=== PATIENT | female | born 1940 | race Caucasian/White ===

== ENCOUNTER → 2016-12-23 | Outpatient (CLI) | payer OTHER | LOC: BMCIMAGING 12:09 | DX: Z12.31 Encounter for screening mammogram for malignant neoplasm of breast (principal) | CPT/HCPCS: G0202 ==

== ENCOUNTER → 2018-01-14 | Outpatient (CLI) | payer OTHER | LOC: BMCIMAGING 12:43 | PROVIDERS: ATTEND Internal Medicine | DX: Z12.31 Encounter for screening mammogram for malignant neoplasm of breast (principal) ==

== ENCOUNTER → 2018-05-19 | Outpatient (CLI) | payer OTHER | LOC: BMCIMAGING 13:02 | PROVIDERS: ATTEND Internal Medicine | DX: M51.37 Other intervertebral disc degeneration, lumbosacral region (principal); M53.87 Other specified dorsopathies, lumbosacral region; M43.16 Spondylolisthesis, lumbar region ==

== ENCOUNTER 2018-11-30 11:16 | Emergency (ER) | payer OTHER ==
--- NOTE | 2018-11-30 11:26 | EDPHY ---
H & P Stated Complaint: irregular HR Time Seen by Provider: 11/30/18 11:25 - Personal History Tetanus Vaccine Date: Under 10 years. - Medical/Surgical History Hx Asthma: Yes Hx Chronic Respiratory Disease: No Hx Diabetes: No Hx Cardiac Disease: Yes Hx Renal Disease: No Hx Cirrhosis: No Hx Alcoholism: No Hx HIV/AIDS: No Hx Splenectomy or Spleen Trauma: No Other PMH: a fib, hysterectomy for uterine cancer surgery 1997, right arthroscopic knee surgery, hypertension, asthma, non cancer nodules in colon, pneumonia, stroke 2007.pulmonary htn,chf - Social History Smoking Status: Never smoked Constitutional: Initial Vital Signs Temperature (C) 36.6 C 11/30/18 11:22 Heart Rate 90 11/30/18 11:22 Respiratory Rate 16 11/30/18 11:22 Blood Pressure 153/87 H 11/30/18 11:22 O2 Sat (%) 95 11/30/18 11:22 O2 Delivery Mode Room Air Allergies/Adverse Reactions: [place] And Derivatives Allergy (Verified 11/30/18 11:21) erythromycin base [Erythromycin Base] Allergy (Verified 11/30/18 11:21) Penicillins Allergy (Verified 11/30/18 11:21) Sulfa (Sulfonamide Antibiotics) Allergy (Verified 11/30/18 11:21) Home Medications: Medication Instructions Recorded Allopurinol [Allopurinol 300 MG 300 mg PO DAILY 12/30/14 (RX)] Aspirin [Aspirin 81mg (*)] 81 mg PO HS 12/30/14 Atorvastatin Calcium [Lipitor 10 10 mg PO HS 12/30/14 mg (*)] Metoprolol Succinate Xr [Toprol Xl 50 mg PO DAILY #30 tab 12/30/14 50 mg (*)] Warfarin Sodium [Coumadin 3MG (*)] 3 mg PO DAILY16 #30 tab 12/30/14 Furosemide [Lasix 20 MG (*)] 20 mg PO MWF #30 tab 01/06/15 Spironolactone [Aldactone 25 MG 12.5 mg PO MWF #30 tab 01/06/15 (*)] Lutein 11/30/18 Vitamin D3 11/30/18 Medical Decision Making ED Course/Re-evaluation: CHIEF COMPLAINT: Irregular heart rate HISTORY OF PRESENT ILLNESS: The patient is an anticoagulated (Coumadin) 78 y/o female complaining of a "fluttering" in her heart, onset last night. The patient has been on Coumadin for 10 years due to a-fib. For the past month she has had intermittent episodes of a-fib. She reports that she has also felt more short of breath while exerting herself. Last night she noticed a "fluttering" in her heart and it felt stronger than normal. She is followed by Dr. Talbot, catalytic converter operator at [facility]. No fever, headache, body aches, lightheadedness, chest pain, shortness of breath, cough, abdominal pain, urinary or bowel complaints, numbness, paresthesias. REVIEW OF SYSTEMS: A comprehensive 10 system review of systems is otherwise negative aside from elements mentioned in the history of present illness and medical decision making. PHYSICAL EXAM: HR, BP, O2 Sat, RR. Temp noted General Appearance: Alert, well hydrated, appropriate, and non-toxic appearing. Head: Atraumatic without scalp tenderness or obvious injury Eyes: Pupils equal, round, reactive to light and accommodation, EOMI, no trauma , no injection. Ears: Clear bilaterally, no perforation, normal landmarks Nose: Atraumatic, no rhinorrhea, clear. Throat: There is no erythema or exudates, no lesions, normal tonsils, mucus membranes moist. Neck: Supple, 2+ carotid upstroke, nontender, no lymphadenopathy. Respiratory: No retractions, no distress, no wheezes, and no accessory muscle use. Lungs are clear to auscultation bilaterally. Cardiovascular: Irregularly irregular rate and rhythm, no murmurs, rubs, or gallops. Bilateral carotid, radial, dorsalis pedis, and posterior tibial pulses intact. Good capillary refill all extremities. Gastrointestinal: Abdomen is soft, nontender, non-distended, no masses, no rebound, no guarding, no peritoneal signs. Musculoskeletal: Normal active ROM of all extremities, atraumatic. Neurological: Alert, appropriate, and interactive. The patient has normal DTRs and non-focal cranial nerves, motor, sensory, and cerebellar exam. Skin: No rashes, good turgor, no nodules on palpation. Past medical history: Atrial fibrillation (on Coumadin), stroke (2007), hypertension, asthma, uterine cancer, pneumonia, CHF Past surgical history: Hysterectomy, right knee surgery Family history: Denies Social history: Friend at bedside, retired, lives in [place] DIAGNOSTICS/PROCEDURES/CRITICAL CARE TIME: EKG: The 12 lead EKG was interpreted by myself as atrial fibrillation with a rate of 84. Controlled ventricular rate. See hard copy and/or "tracemaster" electronic copy for interpretation. DIFFERENTIAL DIAGNOSIS: The differential diagnosis for the patient's irregular heart rate included but was not limited to various causes of sinus tachycardia such as dehydration and medicines, SVT, atrial flutter, atrial fibrillation, pulmonary causes. MEDICAL DECISION MAKING: The patient is an anticoagulated (Coumadin) 78 y/o female presenting with a stronger than normal "fluttering" of her heart, onset last night. The patient has been on Coumadin for 10 years due to a-fib. For the past month she has had intermittent episodes of a-fib. She reports that she has also felt more short of breath while exerting herself. On exam she has an irregularly irregular heart rate that is rate controlled. Labs and EKG ordered. 1134: I interpreted patient's EKG as atrial fibrillation with a rate of 84 and a controlled ventricular rate. 1303: I reviewed patient's labs which reveal that she is therapeutic on Coumadin. UA still pending. 1320: Reassessed patient and discussed EKG and normal lab findings. She is feeling back to normal. She is anticoagulated and rate-controlled with a history of chronic A-fib. I have advised her to follow up with her PCP and catalytic converter operator. Return precautions provided; patient is comfortable with this plan. - Data Points Laboratory Results: Laboratory Results 11/30/18 11:41 11/30/18 11:41 11/30/18 11/30/18 11/30/18 12:56 11:43 11:41 WBC RBC Hgb Hct MCV MCH MCHC RDW Plt Count MPV Neut % (Auto) Lymph % (Auto) [place] % (Auto) Eos % (Auto) Baso % (Auto) Nucleat RBC Rel Count Absolute Neuts (auto) Absolute Lymphs (auto) Absolute Monos (auto) Absolute Eos (auto) Absolute Basos (auto) Absolute Nucleated RBC Immature Gran % Immature Gran # PT 22.6 SEC H SEC (12.0-15.0) INR 2.11 H (0.83-1.16) APTT 36.1 SEC SEC (23.0-38.0) Sodium Potassium Chloride Carbon Dioxide Anion Gap BUN Creatinine Estimated GFR Glucose Calcium Magnesium POC Troponin I 0.02 ng/mL ng/mL (0.00-0.08) NT-Pro-B Natriuret Pep Urine Color PALE YELLOW Urine Appearance CLEAR Urine pH 7.0 (5.0-7.5) Ur Specific [place] 1.004 (1.002-1.030) Urine Protein NEGATIVE (NEGATIVE) Urine Ketones NEGATIVE (NEGATIVE) Urine Blood NEGATIVE (NEGATIVE) Urine Nitrate NEGATIVE (NEGATIVE) Urine Bilirubin NEGATIVE (NEGATIVE) Urine Urobilinogen NEGATIVE EU EU (0.2-1.0) Ur Leukocyte Esterase NEGATIVE (NEGATIVE) Urine RBC NONE SEEN /hpf /hpf (0-3) Urine WBC 1-3 /hpf /hpf (0-3) Ur Epithelial Cells TRACE /lpf /lpf (NONE-1+) Urine Bacteria TRACE /hpf H /hpf (NONE SEEN) Urine Glucose NEGATIVE (NEGATIVE) 11/30/18 11/30/18 11:41 11:41 WBC 7.18 10^3/uL 10^3/uL (3.80-9.50) RBC 4.49 10^6/uL 10^6/uL (4.18-5.33) Hgb 14.9 g/dL g/dL (12.6-16.3) Hct 43.5 % % (38.0-47.0) MCV 96.9 fL fL (81.5-99.8) MCH 33.2 pg pg (27.9-34.1) MCHC 34.3 g/dL g/dL (32.4-36.7) RDW 13.2 % % (11.5-15.2) Plt Count 316 10^3/uL 10^3/uL (150-400) MPV 9.7 fL fL (8.7-11.7) Neut % (Auto) 72.3 % % (39.3-74.2) Lymph % (Auto) 19.8 % % (15.0-45.0) [place] % (Auto) 6.1 % % (4.5-13.0) Eos % (Auto) 1.1 % % (0.6-7.6) Baso % (Auto) 0.6 % % (0.3-1.7) Nucleat RBC Rel Count 0.0 % % (0.0-0.2) Absolute Neuts (auto) 5.19 10^3/uL 10^3/uL (1.70-6.50) Absolute Lymphs (auto) 1.42 10^3/uL 10^3/uL (1.00-3.00) Absolute Monos (auto) 0.44 10^3/uL 10^3/uL (0.30-0.80) Absolute Eos (auto) 0.08 10^3/uL 10^3/uL (0.03-0.40) Absolute Basos (auto) 0.04 10^3/uL 10^3/uL (0.02-0.10) Absolute Nucleated RBC 0.00 10^3/uL 10^3/uL (0-0.01) Immature Gran % 0.1 % % (0.0-1.1) Immature Gran # 0.01 10^3/uL 10^3/uL (0.00-0.10) PT INR APTT Sodium 136 mEq/L mEq/L (135-145) Potassium 4.3 mEq/L mEq/L (3.5-5.2) Chloride 100 mEq/L mEq/L (97-110) Carbon Dioxide 27 mEq/l mEq/l (22-31) Anion Gap 9 mEq/L mEq/L (6-14) BUN 19 mg/dL mg/dL (7-23) Creatinine 0.7 mg/dL mg/dL (0.6-1.0) Estimated GFR > 60 Glucose 202 mg/dL H mg/dL (70-100) Calcium 10.3 mg/dL mg/dL (8.5-10.4) Magnesium 1.9 mg/dL mg/dL (1.6-2.3) POC Troponin I NT-Pro-B Natriuret Pep 424 pg/mL pg/mL (0-450) Urine Color Urine Appearance Urine pH Ur Specific [place] Urine Protein Urine Ketones Urine Blood Urine Nitrate Urine Bilirubin Urine Urobilinogen Ur Leukocyte Esterase Urine RBC Urine WBC Ur Epithelial Cells Urine Bacteria Urine Glucose Point of Care Test Results: Chemistry 11/30/18 11:43 POC Troponin I 0.02 ng/mL ng/mL (0.00-0.08) Departure - Departure Disposition: Home, Routine, Self-Care Clinical Impression: Atrial fibrillation Qualifiers: Atrial fibrillation type: unspecified Qualified Code(s): I48.91 - Unspecified atrial fibrillation Condition: Good Instructions: A-fib (Atrial Fibrillation) (ED) Additional Instructions: 1. Follow-up with your primary doctor within 72 hours. 2. Return to the Emergency Department for fever, chest pain, shortness of breath , increasing pain or other worsening of condition. 3. Follow up with a catalytic converter operator for further testing, as soon as possible, within one week. Referrals: Yanna Longo MD [Primary Care Provider] - As per Instructions Report Scribed for: Be Louie Report Scribed by: Marianna Tinsley Date of Report: 11/30/18 Time of Report: 12:24
[2018-11-30 11:51] LABS: PLATELET COUNT 316 10^3/uL (150-400)
[2018-11-30 12:35] LABS: INR 2.11 (0.83-1.16); PROTIME(PATIENT) 22.6 SEC (12.0-15.0)
[2018-11-30 13:12] VITALS: BP 160/67
--- NOTE | 2018-11-30 13:49 | CPEKG ---
Test Reason : OPEN Blood Pressure : / mmHG Vent. Rate : 084 BPM Atrial Rate : 080 BPM P-R Int : 149 ms QRS Dur : 085 ms QT Int : 367 ms P-R-T Axes : 000 074 -68 degrees QTc Int : 434 ms Atrial fibrillation Confirmed by Be Louie ([id number]) on 11/30/2018 1:49:13 PM Referred By: Be Louie Confirmed By:Be Louie
== END 2018-11-30 13:29 | disposition home or self-care (01) ==
DX: I48.91 Unspecified atrial fibrillation (principal); I10 Essential (primary) hypertension; Z79.01 Long term (current) use of anticoagulants
CPT/HCPCS: 84484-ER

== ENCOUNTER → 2019-02-02 | Outpatient (CLI) | payer OTHER | LOC: BMCIMAGING 13:18 ==